=== PATIENT | male | born 1940 | race Caucasian/White ===

== ENCOUNTER → 2020-03-12 | Outpatient (CLI) | payer OTHER ==
[~2020-03-12] MED LIST: ASPI81TA59 PO; HYDR25TA10 PO; MULT-766 PO; OMEG1CAP50 PO; VITA50004 PO
== END ==
LOC: LAB 14:15
PROVIDERS: ATTEND Registered Nurse
DX: Z11.59 Encounter for screening for other viral diseases (principal)
CPT/HCPCS: U0003-CS

== ENCOUNTER → 2020-03-16 | Day surgery (SDC) | payer OTHER ==
[~2020-03-16] MED LIST changes: +BALANCED SALT IRRIG OPHTH SOLN 15 ML BOTTLE. IRR ONE; +CATARACT OPHTH GEL 0.5 ML SYRINGE. OS ONE; +CHONDROIT-SOD-HYALURONATE KIT. OS ONE; +EPINEPHrine AMPULE 0.5 MG in BALANCED SALT IRRIG SOLN PLUS 500 ML IO ONE; +ERYTHROMYCIN 0.5% OPHTH OINTMENT 1GM TUBE. OS ONE; +HYALURONIDASE 75UNITS in LIDOCAINE 2% PF OPHTH 10 ML SYRINGE. OS ONE; +IPRATRPIUM/ALBUTEROL 0.5/2.5MG 3 ML NEBU. NEB PRN; +IV RINGERS SOLUTION,LACTATED 1,000 ML IV SCH; +KETOROLAC TROMETHAMINE 0.5% OPHTH SOLUTION BOTTLE. ONE; +KETOROLAC TROMETHAMINE 0.5% OPHTH SOLUTION BOTTLE. OS SCH; +LIDO/EPI IN BSS OPHTH 4 ML SYRINGE OS ONE; +MOXIFLOXACIN 0.5% OPHTH SOLUTION 3ML BOTTLE. OS SCH; -OMEG1CAP50 PO; +ONDANSETRON PF 4 MG/2 ML VIAL. IV PRN; +POVIDONE-IODINE 5% OPHTH SOLUTION 30ML BOTTLE. OS ONE; +PROPOFOL 10,000 MCG/ML (20ML) VIAL IV ONE; +TETRACAINE 0.5% OPHTH SOLUTION 4ML BOTTLE. OS ONE; +TETRACAINE 0.5% OPHTH SOLUTION 4ML BOTTLE. OU ONE; -VITA50004 PO; +prednisoLONE ACETATE 1% OPHTH SUSPENSION 5ML BOTTLE. ONE; +prednisoLONE ACETATE 1% OPHTH SUSPENSION 5ML BOTTLE. OS SCH
[2020-03-16] MEDS: MOXIFLOXACIN 0.5% OPHTH SOLUTION 3ML BOTTLE. OS SCH ×3 (07:04→07:12)
--- NOTE | 2020-03-16 08:47 | PDOC4 ---
Phaco/Malyugin Ring/OS Date of Procedure: Mar 16, 2020 Preoperative Diagnosis: 1. Senile Cataract, Left Eye 2. Anticipated Intraoperative Floppy Iris Syndrome Posoperative Diagnosis: 1. Senile Cataract, Left Eye 2. Intraoperative Floppy Iris Syndrome Anesthesia: Local (Block) with monitored anesthesia care Surgeon: Yara Henderson D.O. Procedure: Procdeure: Left Phacoemulsification with intraocular lens implant Pupil Expansion Ring placement Findings: Senile Cataract Intraoperative Floppy Iris Syndrome Indications: Worsening vision interfering with patient's lifestyle Narrative: After discussing the risks, complications and alternatives, including but not limited to loss of vision, infection, bleeding, swelling, anesthetic reaction, capsule rupture with vitreous loss, etc., the patient was given a peribulbar block under mild IV sedation and cardiac monitoring. Pressure was applied to the eye for approximately 10 minutes. The patient was transferred to the main operating room and was prepped and draped in the usual sterile fashion and positioned under the microscope. A lid speculum was placed. A temporal clear corneal incision was made with a keratome and epi-Shugarcaine was injected into the anterior chamber, this was followed by injecting viscoelastic. A side port incision was made. A pupil expansion ring was placed. A continuous tear capsulorrhexis was performed, then hydrodissection was accomplished with balanced salt solution. The phacoemulsification needle was placed in the eye and the nucleus was emulsified. The remaining cortical material was removed with the irrigation and aspiration apparatus. The capsule was polished as needed. The posterior capsule was noted to be clean and intact. Viscoelastic was injected into the eye inflating the capsular bag. An intraocular lens was injected into the eye, unfolding as desired and was positioned in the capsular bag. The pupil expansion ring was removed from the eye. The viscoelastic was aspirated from the eye. The wound edges were hydrated with balanced salt solution and there were no leaks. Viscoelastic was injected over the limbal incisions. Antibiotic and steroid were placed on the eye. The lid speculum was removed, the eye patched shut and a Bunn shield applied. There were no complications and the patient was taken to the PACU in good condition. YARA HENDERSON DO Mar 16, 2020 08:47
[2020-03-16 09:00] VITALS: BP 169/82
== END | disposition home or self-care (01) ==
LOC: SURG 06:34
PROVIDERS: ATTEND Ophthalmology
DX: H21.81 Floppy iris syndrome (principal); H25.812 Combined forms of age-related cataract, left eye; Z79.82 Long term (current) use of aspirin; Z79.899 Other long term (current) drug therapy; Z88.8 Allergy status to other drugs, medicaments and biological substances
CPT/HCPCS: 66982; J0171; J2704; V2632

== ENCOUNTER → 2020-04-09 | Outpatient (CLI) | payer OTHER ==
[2020-03-16 09:00] VITALS: BP 169/82
[~2020-04-09] MED LIST changes: -BALANCED SALT IRRIG OPHTH SOLN 15 ML BOTTLE. IRR ONE; -CATARACT OPHTH GEL 0.5 ML SYRINGE. OS ONE; -CHONDROIT-SOD-HYALURONATE KIT. OS ONE; -EPINEPHrine AMPULE 0.5 MG in BALANCED SALT IRRIG SOLN PLUS 500 ML IO ONE; -ERYTHROMYCIN 0.5% OPHTH OINTMENT 1GM TUBE. OS ONE; -HYALURONIDASE 75UNITS in LIDOCAINE 2% PF OPHTH 10 ML SYRINGE. OS ONE; -IPRATRPIUM/ALBUTEROL 0.5/2.5MG 3 ML NEBU. NEB PRN; -IV RINGERS SOLUTION,LACTATED 1,000 ML IV SCH; -KETOROLAC TROMETHAMINE 0.5% OPHTH SOLUTION BOTTLE. ONE; -KETOROLAC TROMETHAMINE 0.5% OPHTH SOLUTION BOTTLE. OS SCH; -LIDO/EPI IN BSS OPHTH 4 ML SYRINGE OS ONE; -MOXIFLOXACIN 0.5% OPHTH SOLUTION 3ML BOTTLE. OS SCH; +OMEG1CAP50 PO; -ONDANSETRON PF 4 MG/2 ML VIAL. IV PRN; -POVIDONE-IODINE 5% OPHTH SOLUTION 30ML BOTTLE. OS ONE; -PROPOFOL 10,000 MCG/ML (20ML) VIAL IV ONE; -TETRACAINE 0.5% OPHTH SOLUTION 4ML BOTTLE. OS ONE; -TETRACAINE 0.5% OPHTH SOLUTION 4ML BOTTLE. OU ONE; +VITA50004 PO; -prednisoLONE ACETATE 1% OPHTH SUSPENSION 5ML BOTTLE. ONE; -prednisoLONE ACETATE 1% OPHTH SUSPENSION 5ML BOTTLE. OS SCH
== END | disposition home or self-care (01) ==
LOC: LAB 09:00
PROVIDERS: ATTEND Nurse Anesthetist, Certified Registered
DX: Z01.818 Encounter for other preprocedural examination (principal); Z11.59 Encounter for screening for other viral diseases; H26.8 Other specified cataract
CPT/HCPCS: C9803; U0003; 36415

== ENCOUNTER → 2020-04-13 | Day surgery (SDC) | payer OTHER ==
[~2020-04-13] MED LIST changes: +BALANCED SALT IRRIG OPHTH SOLN 15 ML BOTTLE. IRR ONE; +CATARACT OPHTH GEL 0.5 ML SYRINGE. OD ONE; +CHONDROIT-SOD-HYALURONATE KIT. OD ONE; +EPINEPHrine AMPULE 0.5 MG in BALANCED SALT IRRIG SOLN PLUS 500 ML IO ONE; +ERYTHROMYCIN 0.5% OPHTH OINTMENT 1GM TUBE. OD ONE; +HYALURONIDASE 75UNITS in LIDOCAINE 2% PF OPHTH 10 ML SYRINGE. OD ONE; +IPRATRPIUM/ALBUTEROL 0.5/2.5MG 3 ML NEBU. NEB PRN; +IV RINGERS SOLUTION,LACTATED 1,000 ML IV SCH; +KETOROLAC TROMETHAMINE 0.5% OPHTH SOLUTION BOTTLE. OD SCH; +KETOROLAC TROMETHAMINE 0.5% OPHTH SOLUTION BOTTLE. ONE; +LIDO/EPI IN BSS OPHTH 4 ML SYRINGE OD ONE; +MIDAZOLAM HCL PF 2 MG/2 ML VIAL. IV ONE; +MOXIFLOXACIN 0.5% OPHTH SOLUTION 3ML BOTTLE. OD SCH; +ONDANSETRON PF 4 MG/2 ML VIAL. IV PRN; +POVIDONE-IODINE 5% OPHTH SOLUTION 30ML BOTTLE. OD ONE; +TETRACAINE 0.5% OPHTH SOLUTION 4ML BOTTLE. OD ONE; +TETRACAINE 0.5% OPHTH SOLUTION 4ML BOTTLE. OU ONE; +prednisoLONE ACETATE 1% OPHTH SUSPENSION 5ML BOTTLE. OD SCH; +prednisoLONE ACETATE 1% OPHTH SUSPENSION 5ML BOTTLE. ONE
[2020-04-13] MEDS: MOXIFLOXACIN 0.5% OPHTH SOLUTION 3ML BOTTLE. OD SCH ×3 (07:20→07:41)
--- NOTE | 2020-04-13 08:16 | PDOC4 ---
Phaco/Malyugin Ring/OD Date of Procedure: Apr 13, 2020 Preoperative Diagnosis: 1. Senile Cataract, Right Eye 2. Anticipated Intraoperative Floppy Iris Syndrome Postoperative Diagnosis: 1. Senile Cataract, Right Eye 2. Intraoperative Floppy Iris Syndrome Anesthesia: Local (Block) with monitored anesthesia care Surgeon: Yara Henderson D.O. Procedure: Procdeure: 1. Right Phacoemulsification with intraocular lens implant 2. Pupil Expansion Ring Placement Findings: Senile Cataract Intraoperative Floppy Iris Syndrome Indications: Worsening vision interfering with patient's lifestyle Narrative: After discussing the risks, complications and alternatives, including but not limited to loss of vision, infection, bleeding, swelling, anesthetic reaction, capsule rupture with vitreous loss, etc., the patient was given a peribulbar block under mild IV sedation and cardiac monitoring. Pressure was applied to th e eye for approximately 10 minutes. The patient was transferred to the main operating room and was prepped and draped in the usual sterile fashion and positioned under the microscope. A lid speculum was placed. A temporal clear corneal incision was made with a keratome and epi-Shugarcaine was injected into the anterior chamber, this was followed by injecting viscoelastic. A side port incision was made. A pupil expansion ring was placed. A continuous tear capsulorrhexis was performed, then hydrodissection was accomplished with balanced salt solution. The phacoemulsification needle was placed in the eye and the nucleus was emulsified. The remaining cortical material was removed with the irrigation and aspiration apparatus. The capsule was polished as needed. The posterior capsule was noted to be clean and intact. Viscoelastic was injected into the eye inflating the capsular bag. An intraocular lens was injected into the eye, unfolding as desired and was positioned in the capsular bag. The pupil expansion ring was removed from the eye. The viscoelastic was aspirated from the eye. The wound edges were hydrated with balanced salt solution and there were no leaks. Viscoelastic was injected over the limbal incisions. Antibiotic and steroid were placed on the eye. The lid speculum was removed, the eye patched shut and a Bunn shield applied. There were no compilations and the patient was taken to the PACU in good condition. YARA HENDERSON DO Apr 13, 2020 08:16
[2020-04-13 08:25] VITALS: BP 153/83
== END ==
LOC: SURG 06:33
PROVIDERS: ATTEND Ophthalmology
DX: H25.11 Age-related nuclear cataract, right eye (principal); H21.81 Floppy iris syndrome; I10 Essential (primary) hypertension; Z98.890 Other specified postprocedural states
CPT/HCPCS: 66982; J0171; V2632